=== PATIENT | female | born 1995 | race Hispanic/Latino ===

== ENCOUNTER 2017-12-13 22:48 | Emergency (ER) | payer OTHER ==
[2017-12-14] MEDS ORDERED: Bacitracin Zinc 1 Packet ONE (00:06)
[2017-12-14] MEDS ORDERED: Amoxicillin/Potassium Clav 875 MG TAB ONE (00:06)
[2017-12-14] MEDS ORDERED: Acetaminophen/Codeine 30-300mg Tablet ONE (00:07)
== END 2017-12-14 00:16 | disposition home or self-care (01) ==
LOC: ERS 22:48
DX: S01.551A Open bite of lip, initial encounter (principal); S01.511A Laceration without foreign body of lip, initial encounter; F32.9 Major depressive disorder, single episode, unspecified; Z79.899 Other long term (current) drug therapy; W54.0XXA Bitten by dog, initial encounter
CPT/HCPCS: 12011

== ENCOUNTER 2017-12-19 17:56 | Emergency (ER) | payer OTHER | END 2017-12-19 18:44 | disposition home or self-care (01) | LOC: ERS 17:56 | DX: S01.511D Laceration without foreign body of lip, subsequent encounter (principal); F32.9 Major depressive disorder, single episode, unspecified ==

== ENCOUNTER 2020-05-26 12:12 | Day surgery (SDC) | payer OTHER ==
[2020-05-26 12:56] VITALS: BMI 33.7
[2020-05-26] MEDS ORDERED: hydrALAZINE 20 MG/ML VIAL SLOW IVP PRN (12:59)
[2020-05-26 13:23] LABS: #Basophils 0.1 thou/uL (0.0-0.2); #Lymphocytes 1.9 thou/uL (1.20-3.40); #Monocytes 0.4 thou/uL (0.11-0.59); #Neutrophils 5.7 thou/uL (1.40-6.50); %Basophils 0.6 % (0.0-1.0); %Eosinophils 0.5 % (0.0-10.0); %Lymphocytes 23.5 % (21.0-51.0); %Monocytes 5.4 % (0.0-10.0); Mean Corpuscular HGB CONC 34.4 g/dL (32.0-36.0); Mean Corpuscular Hemoglobin 28.8 pg (27.0-31.0); Mean Corpuscular Volume 83.8 fL (78.0-98.0); Platelet Count 179 thou/uL (130-400); RBC Distribution Width 13.7 % (11.5-14.5); Red Blood Cell (RBC) Count 4.16 mill/uL (4.20-5.40); White Blood Cell (WBC) Count 8.2 thou/uL (4.8-10.8)
[2020-05-26 13:49] LABS: AST (SGOT) 15 U/L (5-34); Anion Gap 12 mmol/L (10-20); BUN (Urea Nitrogen) 6 mg/dL (7.0-18.7); Calc. Creatinine Clearance 203 mL/min (70-130); Calcium 8.9 mg/dL (7.8-10.44); Carbon Dioxide 21 mmol/L (22-29); Chloride 108 mmol/L (98-107); Estimated GFR-MDRD Greater than 90; Glucose 86 mg/dL (70-105); Potassium 3.7 mmol/L (3.5-5.1); Sodium 137 mmol/L (136-145)
[2020-05-26 14:25] LABS: Creatinine, Urine 165.79 mg/dL (47-110)
== END 2020-05-26 15:50 | disposition home health service (06) ==
LOC: L&D/OP 12:12
PROVIDERS: ATTEND Obstetrics & Gynecology
DX: O99.891 Other specified diseases and conditions complicating pregnancy (principal); R03.0 Elevated blood-pressure reading, without diagnosis of hypertension; Z3A.00 Weeks of gestation of pregnancy not specified
CPT/HCPCS: 36415; 80048; 82570; 84156; 84450; 85025

== ENCOUNTER 2020-05-31 12:21 | Day surgery (SDC) | payer OTHER ==
[2020-05-31] MEDS ORDERED: hydrALAZINE 20 MG/ML VIAL SLOW IVP PRN (12:29)
[2020-05-31 13:18] VITALS: BP 130/78; TEMP 98.7; BMI 34.8
[2020-05-31 13:34] LABS: #Lymphocytes 2.1 thou/uL (1.20-3.40); #Monocytes 0.4 thou/uL (0.11-0.59); %Basophils 0.3 % (0.0-1.0); %Eosinophils 0.2 % (0.0-10.0); %Lymphocytes 21.8 % (21.0-51.0); %Monocytes 4.4 % (0.0-10.0); %Neutrophils 73.4 % (42.0-75.0); Mean Corpuscular HGB CONC 33.1 g/dL (32.0-36.0); Mean Corpuscular Hemoglobin 27.9 pg (27.0-31.0); Mean Corpuscular Volume 84.4 fL (78.0-98.0); Mean Platelet Volume 10.3 fL (7.4-10.4); Platelet Count 174 thou/uL (130-400); RBC Distribution Width 13.9 % (11.5-14.5); White Blood Cell (WBC) Count 9.5 thou/uL (4.8-10.8)
[2020-05-31 13:53] LABS: ALT (SGPT) 22 U/L (8-55); AST (SGOT) 17 U/L (5-34); Albumin 3.2 g/dL (3.5-5.0); Alkaline Phosphatase 246 U/L (40-110); Anion Gap 14 mmol/L (10-20); BUN (Urea Nitrogen) 9 mg/dL (7.0-18.7); Bilirubin, Total 0.2 mg/dL (0.2-1.2); Calc. Creatinine Clearance 207 mL/min (70-130); Carbon Dioxide 20 mmol/L (22-29); Chloride 108 mmol/L (98-107); Estimated GFR-MDRD Greater than 90; Globulin 3.5 g/dL (2.4-3.5); Glucose 90 mg/dL (70-105); Potassium 3.8 mmol/L (3.5-5.1); Protein, Total 6.7 g/dL (6.0-8.3); Sodium 138 mmol/L (136-145)
[2020-05-31 14:52] LABS: Creatinine, Urine 180.2 mg/dL (47-110)
--- NOTE | 2020-05-31 15:50 | PDOC.LDHP ---
Labor and Delivery H&P Chief complaint: other (elevated bp) HPI: 24 y/o G1 at 40w0d, patient of Dr. Abel, presents with elevated BP in clinic for PIH workup. Denies PIH sx, decreased FM, VB, LOF, or ctx. ROS neg for HEENT, CV, pulm, GI, , neuro, psych, skin, musculoskeletal, or constitutional symptoms other than mentioned above. OB History Details: first Past Medical History: None Current medications: pre-chikis vitamins Previous surgical history: none Allergies/Adverse Reactions: Allergies Allergy/AdvReac Type Severity Reaction Status Date / Time No Known Allergies Allergy Verified 05/31/20 13:18 Social history: none - Physical Exam Vital signs reviewed and normal: yes General: NAD, resting Lungs: nonlabored breathing Abdomen: gravid Extremeties: no edema FHT: category 1 (wandering baseline, mod variability, +accels, no decels) [place] contractions every: none - Assessment 24 y/o G1 w/no e/o preeclampsia. All normal BPs here. Normal labs and urine. BPP 04/30 - Plan -: D/c home with precautions. Scheduled for induction next week.
--- NOTE | 2020-05-31 17:36 | ULT ---
LIMITED OBSTETRICAL ULTRASOUND: 05/31/20 INDICATION: Evaluate biophysical profile and history of maternal hypertension. FINDINGS: Fetus received 2 out of 2 for bone, 2 out of 2 for breathing, 2 out of 2 for moveme nt and 2 out of 2 for amniotic fluid volume for a total score of 8 out of 8. CIERA was 7.6 cm. The sing le live intrauterine gestation is in vertex presentation. Cardiac activity noted at 145 beats per min kathryn. Translabial measurement cervical length was 3.5 cm. Placenta is anterior in location without ev idence of previa. IMPRESSION: 1. Biophysical profile is 8 out of 8. 2. Cervical length is 3.5 cm. POS: BH
== END 2020-05-31 16:14 | disposition home health service (06) ==
LOC: L&D/OP 12:21
PROVIDERS: ATTEND Obstetrics & Gynecology
DX: O99.891 Other specified diseases and conditions complicating pregnancy (principal); R03.0 Elevated blood-pressure reading, without diagnosis of hypertension; O48.0 Post-term pregnancy; Z3A.40 40 weeks gestation of pregnancy
CPT/HCPCS: 36415; 59025; 76819; 80053; 82570; 84156; 85025; 99284

== ENCOUNTER 2020-06-03 11:54 | Outpatient (CLI) | payer OTHER ==
[2020-06-04 20:30] LABS: SARS-CoV-2 MS2 Positive; SARS-CoV-2 N Gene Negative; SARS-CoV-2 S Gene Negative; SARS-CoV-2 by NAA Not Detected (NotDetected); SARS-CoV-2 orf1ab Negative
== END 2020-06-03 11:55 | disposition home or self-care (01) ==
LOC: LABBT 11:54
PROVIDERS: ATTEND Obstetrics & Gynecology
DX: Z20.828 Contact with and (suspected) exposure to other viral communicable diseases (principal)
CPT/HCPCS: 87635; U0003

== ENCOUNTER 2020-06-07 19:15 | Inpatient (IN) | payer OTHER ==
[~2020-06-07 19:15] MED LIST: Bupivacaine/Epinephrine 0.25% 30 ML VIAL ONE; Bupivacaine/Epinephrine 0.5% 10 ML VIAL ONE; Terbutaline Sulfate 1 MG/ML VIAL ONE
[2020-06-07] MEDS ORDERED: hydrALAZINE 20 MG/ML VIAL SLOW IVP PRN (19:45)
[2020-06-07] MEDS ORDERED: Lidocaine 1% (PF) 30 ML VIAL SC PRN (19:45)
[2020-06-07] MEDS ORDERED: Promethazine HCl 25 MG/ML VIAL IM PRN (19:45)
[2020-06-07] MEDS ORDERED: Ondansetron PF 4 MG/2 ML Vial IVP PRN (19:45)
[2020-06-07] MEDS ORDERED: NS / Oxytocin 40 units/1000ml 1,000 ML IV PRN (19:45)
[2020-06-07] MEDS ORDERED: HYDROcodone/Acetaminophen 5/325 mg Tablet PO PRN ×2 (19:45)
[2020-06-07] MEDS ORDERED: Misoprostol 100 MCG TAB VAG SCH ×2 (19:45)
[2020-06-07] MEDS ORDERED: Ibuprofen 800 MG TAB PO PRN (19:45)
[2020-06-07] MEDS ORDERED: Butorphanol Tartrate 1 MG/ML VIAL SLOW IVP PRN (19:45)
[2020-06-07] MEDS ORDERED: NS w/ Oxytocin 10 units 500 ML IV SCH (19:45)
[2020-06-07] MEDS: Lactated Ringer's 1,000 ML IV SCH ×2 (20:00→23:41)
[2020-06-07 20:26] LABS: Mean Corpuscular HGB CONC 32.6 g/dL (32.0-36.0); Mean Corpuscular Hemoglobin 27.3 pg (27.0-31.0); Mean Corpuscular Volume 83.7 fL (78.0-98.0); Mean Platelet Volume 11.1 fL (7.4-10.4); Platelet Count 188 thou/uL (130-400); RBC Distribution Width 14.4 % (11.5-14.5); Red Blood Cell (RBC) Count 4.38 mill/uL (4.20-5.40); White Blood Cell (WBC) Count 11.4 thou/uL (4.8-10.8)
[2020-06-07 21:05] LABS: Syphilis Antibody Nonreactive (Nonreactive); Syphilis Antibody Index 0.05 S/CO (<1.00 Non-Reactive)
[2020-06-07] MEDS: NS w/ Oxytocin 10 units 500 ML IV SCH (21:20)
[2020-06-07 21:26] VITALS: BMI 38.3
[2020-06-07 21:48] LABS: HBSAg Index 0.18 S/CO (0-0.99); Hep B Surf Ag Non-Reactive S/CO (NonReactive)
[2020-06-08] MEDS: Lactated Ringer's 1,000 ML IV SCH ×3 (05:41→12:03)
[2020-06-08] MEDS ORDERED: DISCONTINUE ALL PREVIOUS NARCOTICS FS SCH (09:15)
[2020-06-08] MEDS ORDERED: Bupivacaine 0.5% 20 ML, fentaNYL Citrate/PF 400 MCG in Sodium Chloride 0.9% 72 ML EPIDURAL SCH (09:15)
[2020-06-08] MEDS ORDERED: Naloxone HCl 0.4 mg/ml Vial IVP PRN ×4 (12:31→20:59)
[2020-06-08] MEDS ORDERED: Promethazine HCl 25 MG/ML VIAL IM PRN ×2 (12:31→20:59)
[2020-06-08] MEDS ORDERED: Ondansetron PF 4 MG/2 ML Vial IVP PRN ×3 (12:31→22:50)
[2020-06-08] MEDS ORDERED: Acetaminophen 325 MG TAB PO PRN ×2 (12:31→22:50)
[2020-06-08] MEDS ORDERED: diphenhydrAMINE 50 MG/ML VIAL IVP PRN ×2 (12:31→20:59)
[2020-06-08] MEDS ORDERED: ePHEDrine 50 MG/ML VIAL SLOW IVP PRN (12:31)
[2020-06-08] MEDS ORDERED: Lactated Ringer's 500 ML IV PRN (12:31)
--- NOTE | 2020-06-08 12:44 | PDOC.LDPN ---
Labor & Delivery Progress Note - Subjective Subjective: comfortable - Objective Vital signs reviewed and normal: yes General: resting Dilation: 3-4 Effacement: 50% Station: -1 FHT: category 1 [place] contractions every: 3 IUPC placed: yes - Assessment (1) 41 weeks gestation of Code(s): Z3A.41 - 41 WEEKS GESTATION OF Current Visit: Yes Status: Acute Plan: continue plan of care -: IUPC placed with pitocin @ 2mu/min during exam, pt comfortable w epidural and 1- 2cm change since 0800.
[2020-06-08] MEDS ORDERED: Communication Order-Pharmacy FS SCH ×2 (12:45→21:00)
[2020-06-08] MEDS ORDERED: Fentanyl 4 mcg/Bupivacaine 0.1% Cassette 100 ML EPIDURAL SCH (12:45)
--- NOTE | 2020-06-08 16:25 | PDOC.LDPN ---
Labor & Delivery Progress Note - Subjective Subjective: comfortable - Objective Vital signs reviewed and normal: yes General: resting Dilation: 4 Effacement: 75% Station: -1 FHT: category 1 - Assessment (1) 41 weeks gestation of Code(s): Z3A.41 - 41 WEEKS GESTATION OF Current Visit: Yes Status: Acute Plan: continue plan of care -: Discussed FU SVE in 2 hours if no significant change will plan for 1CS, if change noted then will continue w IOL. IUPC w adequate contractions noted.
[2020-06-08] MEDS ORDERED: Lidocaine 1% (PF) 30 ML VIAL ONE (17:21)
[2020-06-08] MEDS ORDERED: Famotidine/PF 20 mg/2ml Vial ONE (19:12)
[2020-06-08] MEDS ORDERED: Ondansetron PF 4 MG/2 ML Vial ONE ×2 (19:12→20:11)
[2020-06-08] MEDS ORDERED: Scopolamine 1.5 mg/72 hour Patch ONE (19:12)
[2020-06-08] MEDS ORDERED: Morphine PF 10 MG/10 ML VIAL ONE (19:52)
[2020-06-08] MEDS ORDERED: Oxytocin 10 UNITS/ML VIAL ONE ×2 (19:52→20:37)
[2020-06-08] MEDS ORDERED: ePHEDrine 50 MG/ML VIAL ONE (19:53)
[2020-06-08] MEDS ORDERED: PHENYLEPHRINE-NS 100 MCG/ML 10 ML SYRINGE ONE (19:53)
[2020-06-08] MEDS ORDERED: Fentanyl 100 MCG/2 ML VIAL ONE (19:54)
--- NOTE | 2020-06-08 19:58 | PDOC.LDPN ---
Labor & Delivery Progress Note - Subjective Subjective: comfortable - Objective Vital signs reviewed and normal: yes General: resting Dilation: 5 Effacement: 75% Station: -1 FHT: category 1 - Assessment (1) 41 weeks gestation of Code(s): Z3A.41 - 41 WEEKS GESTATION OF Current Visit: Yes Status: Acute (2) Failure of cervical dilation Code(s): O62.0 - PRIMARY INADEQUATE CONTRACTIONS Current Visit: Yes Status: Acute -: Pt agrees w plan of care for failed IOL/arrest of dilation.
[2020-06-08] MEDS ORDERED: Azithromycin 500 MG in Sodium Chloride 0.9% 250 ML 250 ML IVPB SCH (20:00)
[2020-06-08] MEDS ORDERED: Bicitra 30 ML UDCUP PO SCH (20:00)
[2020-06-08] MEDS ORDERED: CEFAZOLIN 2 GM in Premix Bag 1 BAG IVPB SCH (20:00)
[2020-06-08] MEDS ORDERED: Dexamethasone 4 mg/ml Vial ONE (20:11)
[2020-06-08] MEDS ORDERED: Ketorolac Tromethamine 30 MG/ML VIAL ONE (20:11)
[2020-06-08] MEDS ORDERED: Promethazine HCl 25 MG/ML VIAL ONE (20:32)
--- NOTE | 2020-06-08 20:47 | PDOC.OPDEL ---
OB Operative/Delivery Note Delivery Dr/Surgeon: Colten Assist: Mikayla Pre-Delivery Diagnosis: arrest of dilation Procedure/Post Delivery Dx: primary low transverse CS Weeks gestation: 41 Anesthesia: epidural - Findings A Sex: female - Additional Findings/Plan Placenta delivered: spontaneous findings: low transverse hysterotomy without extension, normal uterus, normal tubes, normal ovaries Estimated blood loss: 500-600ml Compilations/Other Findings: Occiput posterior Post delivery plan: routine recovery
[2020-06-08] MEDS ORDERED: Promethazine HCl 25 MG SUPP PR PRN (20:59)
[2020-06-08] MEDS ORDERED: Ondansetron HCl/PF 4 MG/2 ML Vial IVP PRN (20:59)
[2020-06-08] MEDS ORDERED: L&D-Morphine 4 MG/ML VIAL SLOW IVP PRN (20:59)
[2020-06-08] MEDS ORDERED: Meperidine HCl/PF 25 MG/ML VIAL SLOW IVP PRN (20:59)
[2020-06-08] MEDS ORDERED: Ketorolac Tromethamine 30 MG/ML VIAL IVP PRN (20:59)
[2020-06-08] MEDS ORDERED: Naloxone HCl 0.4 mg/ml Vial IV PRN (20:59)
[2020-06-08] MEDS ORDERED: HYDROmorphone 2 MG/ML VIAL SLOW IVP PRN (20:59)
[2020-06-08] MEDS ORDERED: Adacel (T-DAP) 0.5 ML SYRINGE IM ONE (22:50)
[2020-06-08] MEDS ORDERED: Lanolin Ointment 7 GM TUBE TOP PRN (22:50)
[2020-06-08] MEDS ORDERED: Bisacodyl 10 MG SUPP PR PRN (22:50)
[2020-06-08] MEDS ORDERED: hydrALAZINE 20 MG/ML VIAL SLOW IVP PRN (22:50)
[2020-06-08] MEDS ORDERED: HYDROcodone/Acetaminophen 5/325 mg Tablet PO PRN (22:50)
[2020-06-08] MEDS ORDERED: diphenhydrAMINE 25 MG CAP PO PRN (22:50)
[2020-06-09] MEDS: Ibuprofen 800 MG TAB PO SCH ×5 (01:22→23:14)
--- NOTE | 2020-06-09 02:42 | OP ---
DATE OF PROCEDURE: 06/08/2020 PREOPERATIVE DIAGNOSES: 41 weeks and 1 day, arrest of dilation, and occiput posterior. POSTOPERATIVE DIAGNOSES: 41 weeks and 1 day, arrest of dilation, and occiput posterior. PROCEDURE PERFORMED: Primary low-transverse section. MILITARY TECHNICIAN: Martell Degroot MD ANESTHESIA: Epidural. COMPLICATIONS: None. ESTIMATED BLOOD LOSS: 500 mL with QBL pending. FINDINGS: 1. Low-transverse hysterotomy without extension. 2. Vigorous female infant, Apgars and weight pending at the time of dictation, delivered from occiput posterior position through the hysterotomy. 3. Normal-appearing uterus, tubes, and ovaries bilaterally. 4. Surgical site hemostatic. 5. Uterine fundus firm. PROCEDURE IN DETAIL: The patient was taken back to the OR with IV fluids running. Once she was in the OR, she was placed in dorsal supine position with a left lateral tilt with IV fluids, an epidural catheter, and a Ozuna catheter that had all been previously placed during labor. After the abdomen was prepped and draped in normal fashion for section, the surgeons were gowned and gloved. Anesthesia was tested and found to be adequate. A Pfannenstiel skin incision was made across the skin. The subcutaneous tissue was dissected and the incision was carried down to the fascia. Once the fascia was reached, it was incised in the midline and extended superolaterally using curved Moon scissors. Tony clamps were placed at the superior border of the fascia, which was sharply and bluntly dissected off the rectus abdominis muscles, in similar fashion Tony clamps were placed at the inferior border of the fascia, which was dissected down towards the pubic symphysis. The rectus muscles were bluntly entered and stretched in the midline and the peritoneum was entered and stretched laterally. An Az O retractor was placed in the peritoneal cavity for retraction, visualization, and protection of the wound. A bladder flap was created and the bladder reflection was dissected away from the hysterotomy site. A low-transverse hysterotomy was made with a scalpel and was extended bluntly using the Yusuf maneuver. The was noted to be in occiput posterior position and easily delivered through the hysterotomy. The nose and mouth were suctioned. The cord was doubly clamped and cut, and the was handed off to special care nurse in attendance. Cord blood was collected. The placenta was delivered. The uterus was exteriorized, massaged to firm and cleared of clot and debris. The uterus was returned to the abdominal cavity and hysterotomy was closed using Monocryl suture in a running locking layer with a second running layer of Monocryl suture for second layer closure. After the hysterotomy was closed, a small area of bleeding was noted in the midline just inferior to the hysterotomy. One [id number] suture of plain gut was placed with hemostasis immediately noted. The hysterotomy and paracolic gutters were then irrigated and suctioned dry. The hysterotomy was inspected and no areas of bleeding noted. The Az O retractor was removed from the abdominal cavity. The rectus muscle and fascia were inspected and any small areas of bleeding were controlled with Bovie cauterization. The rectus fascia was then reapproximated from [id number] and tied separately in the midline. The subcutaneous layer was irrigated and dried. Any small areas of bleeding were controlled with Bovie cauterization. Plain gut suture was used to reapproximate the subcutaneous layer. Subcuticular layer was closed with 4-0 Monocryl and dressed with Dermabond dressing. The counts were correct x2. The patient tolerated the procedure well. There were no complications. Job ID: [id number]
[2020-06-09] MEDS: Lactated Ringer's 1,000 ML IV SCH (02:50)
--- NOTE | 2020-06-09 05:04 | OP ---
DATE OF PROCEDURE: 06/09/2020 This dictation serves as documentation that I have functioned as first aid nurse to Dr. Zac Abel for a primary of Temi Stafford for the rest of labor. For complete details, please refer to her operative note. Job ID: [id number]
[2020-06-09 05:36] LABS: Mean Corpuscular HGB CONC 30.6 g/dL (32.0-36.0); Mean Corpuscular Hemoglobin 25.9 pg (27.0-31.0); Mean Corpuscular Volume 84.7 fL (78.0-98.0); Mean Platelet Volume 11.3 fL (7.4-10.4); Platelet Count 171 thou/uL (130-400); RBC Distribution Width 14.4 % (11.5-14.5); Red Blood Cell (RBC) Count 3.86 mill/uL (4.20-5.40); White Blood Cell (WBC) Count 13.1 thou/uL (4.8-10.8)
[2020-06-09] MEDS: NS w/ Oxytocin 10 units 500 ML IV SCH (08:04)
[2020-06-09] MEDS: Ferrous Sulfate 325 MG TAB PO SCH ×2 (08:05→23:14)
[2020-06-09] MEDS: Prenatal Vitamin 1 TAB PO SCH (09:42)
[2020-06-09] MEDS: Docusate Calcium (SURFAK) 240 MG CAP PO SCH ×2 (09:43→23:14)
--- NOTE | 2020-06-09 10:13 | PDOC.PP ---
Post Progress Note Post Day #: 1 Subjective: nursing with some latching issues, minimal pain PO intake tolerated: yes Flatus: yes Ambulation: yes Vital Signs (12 hours) Temp Pulse Resp BP Pulse Ox 06/09/20 08:14 98.3 F 85 20 114/69 98 06/09/20 02:52 98 F 87 18 124/66 06/08/20 23:00 99.4 F 86 16 140/79 97 Weight Weight 203 lb - Physical Examination General: NAD Respiratory: non-labored breathing Fundus firm & at: below umb Skin: CS incision dry & intact (dressing CDI) Neurological: no gross focal deficits Psychiatric: A&Ox3, normal affect Result Diagrams: 06/09/20 05:10 Additional Labs: Post Labs Hep Bs Antigen Non-Reactive S/CO (NonReactive) 06/07/20 20:12 Blood Type O POSITIVE 06/07/20 21:16 (1) 41 weeks gestation of Code(s): Z3A.41 - 41 WEEKS GESTATION OF Status: Acute (2) Failure of cervical dilation Code(s): O62.0 - PRIMARY INADEQUATE CONTRACTIONS Status: Acute (3) delivery delivered Code(s): O82 - ENCOUNTER FOR DELIVERY WITHOUT INDICATION Status: Acute - Assessment/Plan POD 1 doing well, will see LC today to help with latch. Possible DC tomorrow.
[2020-06-10] MEDS: HYDROcodone/Acetaminophen 5/325 mg Tablet PO PRN ×2 (04:45→17:39)
[2020-06-10] MEDS: Ibuprofen 800 MG TAB PO SCH ×3 (06:10→22:12)
[2020-06-10] MEDS: Ferrous Sulfate 325 MG TAB PO SCH ×2 (09:12→20:09)
[2020-06-10] MEDS: Prenatal Vitamin 1 TAB PO SCH (09:13)
[2020-06-10] MEDS: Docusate Calcium (SURFAK) 240 MG CAP PO SCH ×2 (09:13→22:13)
[2020-06-10] MEDS: Simethicone Chewable 80 MG TAB PO PRN (17:39)
[2020-06-11] MEDS: Ibuprofen 800 MG TAB PO SCH (05:54)
[2020-06-11] MEDS: Ferrous Sulfate 325 MG TAB PO SCH (07:46)
[2020-06-11] MEDS: Prenatal Vitamin 1 TAB PO SCH (08:48)
[2020-06-11] MEDS: Docusate Calcium (SURFAK) 240 MG CAP PO SCH (08:48)
[2020-06-11] MEDS: Simethicone Chewable 80 MG TAB PO PRN (08:48)
[2020-06-11 09:04] VITALS: BP 127/77; TEMP 98.6
== END 2020-06-11 10:20 | disposition home or self-care (01) | DRG 788 ==
LOC: L&D 19:30 → 3SE 06-08 23:33
PROVIDERS: ADMIT Obstetrics & Gynecology; ATTEND Obstetrics & Gynecology
PROC: 10D00Z1 Extraction of Products of Conception, Low, Open Approach (ICD-10-PCS; principal; 2020-06-09)
PROC: 10907ZC Drainage of Amniotic Fluid, Therapeutic from Products of Conception, Via Natural or Artificial Opening (ICD-10-PCS; 2020-06-09)
PROC: 10H07YZ Insertion of Other Device into Products of Conception, Via Natural or Artificial Opening (ICD-10-PCS; 2020-06-09)
PROC: 3E0P7VZ Introduction of Hormone into Female Reproductive, Via Natural or Artificial Opening (ICD-10-PCS; 2020-06-09)
DX: O48.0 Post-term pregnancy (principal); Z3A.41 41 weeks gestation of pregnancy; O62.0 Primary inadequate contractions; Z20.828 Contact with and (suspected) exposure to other viral communicable diseases; O61.0 Failed medical induction of labor; Z37.0 Single live birth
CPT/HCPCS: 36415; 51702; 85027; 86780; 86850; 86900; 86901; 87340; J0595; J0690; J1100; J1885; J2270; J2405; J2550; J3010; J3105; J3490; S0028